=== PATIENT | male | born 2000 | race American Indian/Alaskan Native ===

== ENCOUNTER 2022-03-15 02:19 | Emergency (ER) | payer SELFPAY ==
[2022-03-15] MEDS ORDERED: ONDANSETRON 4 MG/2 ML INJ IV ONE (02:37)
[2022-03-15] MEDS ORDERED: SODIUM CHLORIDE 0.9% 1000 ML 1,000 ML IV ONE (02:37)
[2022-03-15] MEDS ORDERED: MORPHINE 4 MG/1 ML INJ IV ONE (02:37)
[2022-03-15] MEDS ORDERED: SODIUM CHLORIDE 0.9% IRR 500 ML BOTTLE IR ONE (02:38)
[2022-03-15] MEDS ORDERED: TETANUS,DIPH,PERTUSS(ACELL) VACCINE 0.5 ML SYRINGE IM ONE (02:38)
[2022-03-15 03:06] LABS: Hematocrit 46.9 % (35.5-45.6); Mean Corpuscular HGB Conc 34 % (32-34); Mean Corpuscular Volume 91 fl (84-94); Platelet Count 161 K/mm3 (140-440); Red Blood Count 5.15 M/mm3 (3.65-5.03); Red Cell Distribution Width 13.7 % (13.2-15.2)
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
[2022-03-15 03:16] LABS: INR 0.88 (0.87-1.13); Partial Thromboplastin Time 23.6 Sec. (24.2-36.6)
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
[2022-03-15 03:24] LABS: Alanine Aminotransferase 19 units/L (7-56); Albumin 5.2 g/dL (3.9-5); BUN/Creatinine Ratio 9; Blood Urea Nitrogen 11 mg/dL (9-20); Calcium 9.8 mg/dL (8.4-10.2); Hemolysis Index 15
[2022-03-15 03:48] LABS: Basophils % (Manual) 0 % (0.0-1.8); Eosinophils % (Manual) 0 % (0.0-4.3); Platelet Estimate Consistent w Auto; Total Cells Counted 100
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
[2022-03-15] MEDS ORDERED: HYDROmorphone 0.5 MG/0.5 ML INJ IV ONE (04:12)
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
[2022-03-15 05:23] LABS: Color,Urine Colorless (Yellow)
[2022-03-15 05:29] VITALS: BP 121/72
[2022-03-15 05:29] LABS: RBC,Urine < 1.0 /HPF (0.0-6.0); WBC,Urine < 1.0 /HPF (0.0-6.0)
== END 2022-03-15 06:32 | disposition home or self-care (01) ==
LOC: ED 02:19
DX: S30.811A Abrasion of abdominal wall, initial encounter (principal); S09.90XA Unspecified injury of head, initial encounter; S81.802A Unspecified open wound, left lower leg, initial encounter; R79.1 Abnormal coagulation profile; Z88.8 Allergy status to other drugs, medicaments and biological substances; Z91.018 Allergy to other foods; V89.2XXA Person injured in unspecified motor-vehicle accident, traffic, initial encounter; Y92.89 Other specified places as the place of occurrence of the external cause; Y92.488 Other paved roadways as the place of occurrence of the external cause; Y99.8 Other external cause status
CPT/HCPCS: 36415; 70450; 71045; 73590; 74177; 80053; 81001; 82550; 85007; 85025; 85610; 85730; 90471; 90715; 96361; 96374; 96375; 99284; J2270; J2405; J7030; Q9967; 80320; G0480